=== PATIENT | female | born 1930 | race Caucasian/White ===

== ENCOUNTER 2018-09-17 15:14 | Inpatient (IN) | payer MEDICARE, OTHER ==
--- NOTE | 2018-09-17 16:43 | ED Physician Chart ---
ED Chief Complaint/HPI - Patient Information Date Seen:: 09/17/18 Time Seen:: 15:35 Chief Complaint:: Confusion with frequent wandering around for about 2 years. History of Present Illness:: Brought in by daughter Lisa for medical clearance for Geropsych admission. Pt has dementia and has been noticed to have progressive confusion with frequent wandering. Pt appears to be comfortable but is not cooperative; thus, H & P are limited. Pt denies any bodily pain or discomfort. Pt is primarily Armenian speaking. Interpretation is provided by her daughter Lisa per pt's request. Allergies:: Allergies Allergy/AdvReac Type Severity Reaction Status Date / Time No Known Allergies Allergy Verified 09/17/18 15:48 Vitals:: Vital Signs - 8 hr 09/17/18 15:48 Temp 97.2 F HR 82 RR 16 BP 155/68 O2 Sat % 97 Historian:: Patient, Family Member (daughter Lisa) Family MD/PCP:: Dr. Dennis LMP:: Postmenopausal. Review:: Nurse's Note Reviewed ED Review of Systems - Review of Systems General/Constitutional: Other (Pt does not cooperate for ROS.) ED Past Medical History - Past Medical History Past Medical History: HTN, DM, Dyslipidemia, Dementia Family History: None Social History: Non Smoker, No Alcohol, No Drug Use, Employment:: Retired. Surgical History: None Psychiatricy History: Dementia Medication: Reviewed Family Medical History - Family Member Mother History Unknown: Yes ED Physical Exam - Physical Examination General/Constitutional: Awake, Well-developed, well-nourished (elderly female), Alert, No distress, Non-toxic appearing, Ambulatory Other Gen/Cons comments:: Breathes comfortably, speaks clearly, but is not fully cooperative. Head: Atraumatic Eyes: Lids, conjuctiva normal, PERRL, EOMI Skin: Well hydrated, No lymphadenopathy ENMT: External ears, nose nl, Nasal exam nl, Oropharynx nl Neck: Full ROM w/o pain, No nuchal rigidity, No mass Respiratory: Nl effort/Exclusion, Clear to Auscultation, No Wheeze/Rhonchi/Rales Cardio Vascular: RRR, No murmur, gallop, rubs GI: No tenderness/rebounding/guarding, No organomegaly, Normal BS's, Nondistended, No mass/bruits Other GI comments:: Abdomen is soft. Extremities: No tenderness or effusion, No edema Neuro/Psych: Alert/oriented (knows her name and that she is in a hospital. Spontaneous movements noticed in all 4 extremities. Pt does not cooperate for full neurological exam.) ED Labs/Radiology/EKG Results - Lab Results Results: Laboratory Results - last 24 hr 09/17/18 09/17/18 09/17/18 17:03 17:03 17:40 WBC 7.8 RBC 4.64 Hgb 13.3 Hct 39.9 L MCV 86.1 MCH 28.8 MCHC Differential 33.4 RDW 13.5 Plt Count 242 MPV 7.6 Neutrophils % 50.6 Lymphocytes % 39.2 Monocytes % 8.0 Eosinophils % 1.5 Basophils % 0.7 Sodium 139 Potassium 3.8 Chloride 107 Carbon Dioxide 26.5 Anion Gap 9.3 BUN 20 Creatinine 0.7 Est GFR ( Amer) TNP Est GFR (Non-Af Amer) TNP BUN/Creatinine Ratio 28.6 Glucose 96 Calcium 8.8 Total Bilirubin 0.4 AST 10 L ALT 6 L Alkaline Phosphatase 57 Total Protein 6.7 Albumin 3.3 L Globulin 3.4 Albumin/Globulin Ratio 1.0 Urine Color STRAW Urine Clarity HAZY Urine pH 6.0 Ur Specific [place] 1.020 Urine Protein NEGATIVE Urine Glucose (UA) NEGATIVE Urine Ketones NEGATIVE Urine Blood SMALL H Urine Nitrate POSITIVE H Urine Bilirubin NEGATIVE Urine Urobilinogen 0.2 Ur Leukocyte Esterase SMALL H Pending lab results: urine culture. - EKG Interpretations EKG Time:: 17:03 Rate & Rhythm: NSR with VR 83 Comments:: No acute ischemic changes. ED Septic Shock - . Is Septic Shock (SBP<90, OR Lactate>4 mmol\L) present?: No - <6hrs of presentation: Vital Signs: Vital Signs - 8 hr 09/17/18 15:48 Temp 97.2 F HR 82 RR 16 BP 155/68 O2 Sat % 97 ED Reassessment (Disposition) - Reassessment Reassessment:: 1836 Pt remains stable. Lab and EKG findings have been reviewed with pt. Management plan has been discussed. Interpretation by her luis Gonzalez per pt' s request. Pt is medically cleared for [facility] admission. - Diagnosis Diagnosis:: Dementia. Urinary tract infection. DM. HTN. - Patient Disposition Admitted to:: [facility] Admitting Medical Physician:: Demetrius Dennis Admitting Psych Physician:: Blayne Ramirez Time:: 18:45 Condition at Disposition:: Stable
[2018-09-17 17:25] LABS: ALBUMIN 3.3 gm/dL (3.7-5.3); ALKALINE PHOSPHATASE 57 U/L (34-104); ANION GAP 9.3 (7.0-16.0); BILIRUBIN,TOTAL 0.4 mg/dL (0.3-1.0); BUN - UREA NITROGEN 20 mg/dL (7-25); CALCIUM SERUM 8.8 mg/dL (8.6-10.3); CARBON DIOXIDE 26.5 mEq/L (21.0-31.0); CHLORIDE 107 mEq/L (98-107); CREATININE - SERUM 0.7 mg/dL (0.6-1.2); GLUCOSE 96 mg/dL (70-105); POTASSIUM SERUM 3.8 mEq/L (3.5-5.1); SGOT 10 U/L (13-39); SGPT/ALT 6 U/L (7-52); SODIUM SERUM 139 mEq/L (136-145); TOTAL PROTEIN,SERUM 6.7 gm/dL (6.0-8.3)
[2018-09-17 17:32] LABS: RED BLOOD COUNT 4.64 Mil/cmm (3.80-5.20); WHITE BLOOD COUNT 7.8 Th/cmm (4.8-10.8)
[2018-09-17 17:33] LABS: % LYMPHOCYTES 39.2 % (20.0-50.0); % NEUTROPHILS 50.6 % (40.0-80.0); HEMATOCRIT 39.9 % (41.0-60); HEMOGLOBIN 13.3 gm/dL (12-16); MEAN CELL VOLUME 86.1 fl (81-100); MEAN CORPUSCULAR HEMOGLOBIN 28.8 pg (27.0-31.0); MEAN CORPUSCULAR HGB CONC 33.4 pg (28.0-36.0); PLATELET COUNT 242 Th/cmm (150-400); RED CELL DISTRIBUTION WIDTH 13.5 % (11.5-20.0)
[2018-09-17 17:34] LABS: % BASOPHILS 0.7 % (0.0-2.0); % EOSINOPHILS 1.5 % (0.0-5.0)
[2018-09-17 18:12] LABS: URINE SOURCE CLEAN C
[2018-09-17 18:17] LABS: URINE BILIRUBIN NEGATIVE (NEGATIVE); URINE BLOOD SMALL (NEGATIVE); URINE GLUCOSE (UA) NEGATIVE (NEGATIVE); URINE KETONE NEGATIVE (NEGATIVE); URINE LEUKOCYTE ESTERASE SMALL (NEGATIVE); URINE MICROSCOPIC INDICATED? YES; URINE NITRATE POSITIVE (NEGATIVE); URINE PROTEIN NEGATIVE (NEGATIVE); URINE UROBILINOGEN 0.2 E.U./dL (0.2 - 1.0)
[2018-09-17 18:28] LABS: URINE COLOR STRAW
[2018-09-17 18:29] LABS: URINE CLARITY HAZY (CLEAR)
[2018-09-17] MEDS ORDERED: Sulfamethoxazole/TMP 800/160mg Tab PO ONE (18:34)
[2018-09-17] MEDS ORDERED: Sulfamethoxazole/TMP 800/160mg Tab ONE (18:38)
[2018-09-17 19:11] LABS: URINE RBC 0-2 /hpf (0-5)
[2018-09-17 19:12] LABS: URINE BACTERIA 3+ /hpf (NONE SEEN); URINE EPITHELIAL CELLS OCCASIONAL /lpf (FEW)
[2018-09-17 20:16] VITALS: BP 156/68
[2018-09-17 21:18] LABS: CHOLESTEROL 223 mg/dL (<200); HDL -HIGH DENSITY LIPOPROTEIN 46 mg/dL (23-92); TRIGLYCERIDES 167 mg/dL (<150)
[2018-09-18] MEDS ORDERED: INSULIN LISPRO 100 UNIT/ML VIAL SUBQ SCH (06:30)
[2018-09-18] MEDS: INSULIN LISPRO 100 UNIT/ML VIAL SUBQ SCH ×2 (06:40→17:04)
[2018-09-18 08:05] LABS: A1C 5.6 % (4.8-5.6)
[2018-09-18] MEDS: Aspirin 81mg Chewable Tab PO SCH (08:29)
[2018-09-19] MEDS: INSULIN LISPRO 100 UNIT/ML VIAL SUBQ SCH ×2 (06:30→17:35)
[2018-09-19] MEDS: Aspirin 81mg Chewable Tab PO SCH (09:00)
--- NOTE | 2018-09-19 09:05 | Psychiatric Evaluation ---
DATE OF SERVICE: 09/18/2018 PSYCHIATRIC EVALUATION AND EXAMINATION IDENTIFYING DATA: The patient is an 87-year-old woman, resident of a long-term facility. Information obtained by directly interviewing the patient as well as reviewing the admission papers and is reliable. JUSTIFICATION OF HOSPITALIZATION: The patient is admitted on a voluntary basis in view of her depression and confusion. CHIEF COMPLAINT: "They brought me in here. I don't know. I left my back at home, I need that one now." HISTORY OF PRESENT ILLNESS: This is the first psychiatric hospitalization to [facility] for this patient who is reported to have been very confused and wandering most of the time and needs to be redirected. The patient is also reported to have been diagnosed to have depression and has been on antidepressant medication. During the evaluation, the patient is not able to provide much of information. Sleep and appetite prior to the hospitalization are reported to be poor. The patient is getting easily confused and walking out. PAST PSYCHIATRIC HISTORY: Details are not known. MEDICAL HISTORY: Physical examination is requested to be done by Dr. Dennis. SUBSTANCE ABUSE HISTORY: None. PHYSICAL OR SEXUAL ABUSE HISTORY: None. LEGAL PROBLEMS: None at this time. MENTAL STATUS EXAMINATION: The patient is an 87-year-old, looking her stated age, cooperative. Eye contact is noted to be fair. Mood is noted to be depressed. Affect is constricted. Insight and judgment at this time are noted to be still impaired. Impulse control is noted to be limited. Coping skills are noted to be limited. The patient has been having difficult time to cope with the stress. The patient is not presenting with any threats to harm self or others. The patient's attention span and concentration noted to be very poor. The patient is not able to recall the three things that are told to her after 5 minutes. The patient is however, motivated to seek treatment. DIAGNOSTIC IMPRESSION: AXIS I: Depressive disorder, not otherwise specified. IB: Dementia and behavioral changes, secondary trait. AXIS II: None. AXIS III: As per Dr. Dennis. IMMEDIATE TREATMENT PLAN: The patient is going to be observed on inpatient unit, provided with supportive psychotherapy. The patient is going to be closely monitored. The patient is going to be continued on the citalopram. The patient is going to be encouraged to verbalize the concerns. ESTIMATED LENGTH OF STAY: 5-7 days. DISCHARGE CRITERIA: When the patient is no longer a threat to self or others and be able to cope up with the stress. [facility]# [id number]
--- NOTE | 2018-09-19 19:51 | Progress Notes ---
DATE: 09/19/2018 SUBJECTIVE: The patient is awake and alert. The patient appears calm. The patient follows directions. Denies any chest pain or shortness of breath. Denies any nausea, vomiting or abdominal pain. OBJECTIVE: VITAL SIGNS: Stable, afebrile. GENERAL: In no apparent distress. HEENT: Normal. LUNGS: Clear. HEART: Regular rhythm, no murmur. ABDOMEN: Soft, nondistended. GENITOURINARY: No CVA tenderness. PSYCHIATRIC: Poor insight and judgment. MUSCULOSKELETAL: No edema in lower extremity. ASSESSMENT: 1. Essentially senile dementia with psychosis. 2. Acute depressive disorder with anxiety component. 3. Type 2 diabetes mellitus. 4. Hypertension. 5. Hyperlipidemia. 6. Hearing deficit, right ear. PLAN: 1. Continue inpatient psych treatment and therapy. 2. Continue current diabetic meds and blood pressure meds. 3. Continue psych meds per psychiatrist. JOB# [id number]
--- NOTE | 2018-09-20 00:39 | Consultation ---
DATE OF CONSULTATION: 09/18/2018 REQUESTING PHYSICIAN: Psychiatrist. CHIEF COMPLAINT: The patient is here for evaluation of severe anxiety and depression. HISTORY OF PRESENT ILLNESS: The patient is essentially an 87-year-old female with history of type 2 diabetes mellitus, hypertension, hyperlipidemia, chronic vertigo, and decreased hearing in the right ear, who voluntarily checked herself to the psych facility today for evaluation of severe depression and anxiety. The patient is a poor historian. Chart is reviewed. History is obtained from old records. According to the record, the patient is more restless and agitated, the family cannot take care of her. The patient also was feeling quite depressed. The patient came from home. PAST MEDICAL HISTORY: See HPI. PAST SURGICAL HISTORY: None. FAMILY HISTORY: Unknown. SOCIAL HISTORY: The patient is a single, denies tobacco or alcohol usage. REVIEW OF SYSTEMS: Unable to obtain due to the patient's demented state. PHYSICAL EXAMINATION: VITAL SIGNS: Stable, afebrile. GENERAL: Elderly appearing female, in minimal distress. HEENT: PERRLA, EOMI. Throat clear. Moist mucosa. NECK: Supple. CHEST: Lungs clear to auscultation. HEART: Regular rate and rhythm. No murmur. ABDOMEN: Soft, nondistended. GENITOURINARY: No ____. NEUROLOGIC: ____. Alert and oriented x 2. No focal findings noted. LABORATORY DATA: CBC is normal. Chem-7 is also normal. Blood sugar 96. Her cholesterol was 223, LDL was 149. UA positive nitrite, small leukocyte, 6-10 wbc's, 3+ urine bacteria. ASSESSMENT: 1. The patient is essentially 87-year-old female who presented with severe depression and anxiety. 2. The patient also found to have senile dementia with psychosis. 3. Urinary tract infection. 4. Type 2 diabetes mellitus. 5. Hypertension. 6. Hyperlipidemia. 7. Hearing deficit, right ear. PLAN: Concur with inpatient psych treatment and therapy. We will empirically start the patient on Macrobid 100 mg p.o. b.i.d. for 7 days for treatment of UTI. Also, will put the patient on 1800-ADA diet and insulin sliding scale for now. Continue the patient on blood pressure and cholesterol medication and continue psych medication per psychiatrist. JOB# [id number]
--- NOTE | 2018-09-20 01:50 | Consultation ---
DATE OF CONSULTATION: 09/19/2018 REFERRING PHYSICIAN: Blayne Ramirez M.D. TYPE OF CONSULTATION: Psychology. HISTORY OF PRESENT ILLNESS: The patient is an 87-year-old female. The following is by record review and by the patient's self-report. The patient is being admitted due to depression and worsening confusion. Upon interview, the patient does not understand why she has been brought to the hospital. The staff at the patient's facility report that she had been wandering and difficult to redirect with increasing confusion. The patient has a history of depression and has been on antidepressant medication. The patient is confused to the point where she is not providing much information. The patient is highly distractible. PAST MEDICAL HISTORY: Please see history and physical by Dr. Dennis. PAST PSYCHIATRIC HISTORY: Records are unavailable. Details are unknown. SUBSTANCE ABUSE HISTORY: The patient did not answer the questions about past use of alcohol, tobacco or illicit drugs. PSYCHOSOCIAL HISTORY: The patient did not answer questions about occupational or educational history. The patient states that she was raised [employer]ism and that she has a daughter named Lisa who is involved with her care. The patient did not indicate whether she is or or still . The patient did not answer questions about experiencing any history of physical or sexual abuse, but shook her head no to these questions. The patient denies any current legal problems. MENTAL STATUS EXAMINATION: The patient appears to be older than her stated age. The patient's attitude is cooperative. Eye contact is fair. Speech is slow and delayed, but coherent. Mood is depressed. Affect is constricted. Thought process shows to be depressogenic and confused. The patient denied experiencing any auditory or visual hallucinations or delusions. She denies any suicidal ideation, plan or intention. The patient's behavior has been redirectable for the most part on the unit. Impulse control is limited. Concentration is quite poor. The patient was unable to sustain focus and attention. The patient did not participate in the memory assessment. It appears that the patient's short-term memory is impaired and possible long-term memory as well. This needs further evaluation. The patient was having difficulty recalling her date of as well as milestones. Sensorium is alert and oriented to self and place only. The patient did not participate in the interpretation of proverbs. Insight is poor. Judgment is compromised. DIAGNOSTIC IMPRESSION: AXIS I: 1. Depressive disorder, not otherwise specified. 2. Dementia with behavioral disturbance. AXIS II: Deferred. AXIS III: Per Dr. Dennis. TREATMENT PLAN: The patient has been seen by Dr. Ramirez for psychiatric evaluation and for the management of the patient's psychotropic medications. We will provide supportive psychotherapy to include reality orientation, differentiation and integration. We will provide coping strategies for phase of life issues. If the patient is able to demonstrate the capacity to benefit from a cognitive behavioral therapeutic approach and treatment, we will provide this to reduce her depression. We will provide insight-oriented therapy as well as reflective listening. We will provide coping strategies for phase of life issues. We will provide motivational enhancement for the patient to become compliant and stay compliant with all aspects of her care and treatment. Thank you, Dr. Ramirez, for this consult and the opportunity to participate in this patient's care. JOB# [id number] MTDD
--- NOTE | 2018-09-20 03:45 | Progress Notes ---
DATE: 09/19/2018 PSYCHIATRIC PROGRESS NOTE SUBJECTIVE: Staff was spoken to. The patient is interviewed. The patient is noted to be very confused and has been having difficult time to cope with the stress. The patient is stating that she forgot her medication bag and she is worried about when she is going to be getting her medications; even though, the patient has been got the medications, the patient is still fixated on getting her medications. The patient continues to be having problem with the memory and hence I have decided to start the patient on Aricept and Namenda and follow the patient up with supportive therapy. JOB# [id number]
[2018-09-20] MEDS: INSULIN LISPRO 100 UNIT/ML VIAL SUBQ SCH ×2 (06:31→16:59)
[2018-09-20] MEDS: Aspirin 81mg Chewable Tab PO SCH (09:15)
--- NOTE | 2018-09-21 04:22 | Progress Notes ---
DATE: 09/20/2018 SUBJECTIVE: Staff was spoken to. The patient is interviewed. Mood is noted to be anxious. Affect is constricted. The patient's insight and judgment are noted to be improving. Impulse control seems to be poor. The patient is confused and has been wandering in and out of the room. The patient has both short-term and long-term memory deficits and the patient has been placed on the Namenda and Aricept to help her with the dementia part. Patient is currently on lorazepam on p.r.n. basis and the patient is being closely monitored at this time. No major side effects to the medications are noted. ASSESSMENT: The patient is still confused and paranoid. PLAN: To continue the patient with the supportive therapy, encouraged the patient to verbalize the concerns rather than to act out. JOB# [id number]
[2018-09-21] MEDS: INSULIN LISPRO 100 UNIT/ML VIAL SUBQ SCH (06:45)
[2018-09-21] MEDS: Aspirin 81mg Chewable Tab PO SCH (08:31)
--- NOTE | 2018-09-21 13:27 | Progress Notes ---
DATE: SUBJECTIVE: The patient is awake and alert. The patient is sitting up in bed. The patient denies any ____ symptoms. No chest pain or shortness of breath. The patient is able to follow commands and directions without difficulty. OBJECTIVE: VITAL SIGNS: Afebrile. Vital signs are stable. GENERAL: No apparent distress. HEENT: Normal. LUNGS: Clear. HEART: Regular rhythm, no murmur. ABDOMEN: Soft, nondistended. PSYCHIATRIC: Poor insight and judgment. NEUROLOGIC: No focal deficit noted. ASSESSMENT: 1. Senile dementia with psychosis. 2. Acute depression disorder with anxiety component. 3. Type 2 diabetes mellitus. 4. Hypertension. 5. Hyperlipidemia. 6. Hearing deficit, right ear. PLAN: 1. Continue inpatient psych treatment and therapy. 2. Continue psych meds per psychiatrist. 3. Continue current diabetic meds and BP meds. JOB# [id number]
--- NOTE | 2018-09-21 23:39 | Progress Notes ---
DATE: 09/21/2018 PSYCHIATRIC PROGRESS NOTE SUBJECTIVE: Staff was spoken to. The patient is interviewed. Mood is noted to be irritable. Affect is constricted. The patient is stating that she does not belong in here. The patient is stating that she could not figure it out why she has to be here and she has been looking for her family. The patient has no insight into her illness. Coping skills at this time are noted to be very poor. The patient has been confused and demented. PLAN: The patient has been placed on the Namenda and Aricept. The patient's family wants the patient to be back at the facility. Since the patient is not presenting with any threats to harm self or others, it is decided to discharge the patient today for followup on an outpatient basis. [facility]# [id number]
--- NOTE | 2018-09-22 03:22 | Progress Notes ---
DATE: 09/21/2018 PSYCHOLOGY PROGRESS NOTE SUBJECTIVE: The patient is seen and is interviewed. Case is discussed with staff. The patient presents as stable. The patient continues to be confused. Staff reports that the patient is redirectable, but has a tendency to wander. The patient responded mostly with irrelevant answers to the clinical questions. OBJECTIVE: Mood is anxious. Affect is mood congruent. Thought process shows to be confused. The patient did not answer questions about experiencing hallucinations or delusions. The patient has been compliant with her medication. ASSESSMENT AND PLAN: The patient's confusion persists. At this time, the patient is not verbalizing any paranoid ideation. We provided positive reinforcement for the patient to stay compliant with her care and treatment and to follow through with staff direction at her placement. We provided coping strategies for phase of life issues. We encouraged the patient to verbalize her concerns versus acting out. No followup is indicated. The staff reports the patient is scheduled to discharge today. JOB# [id number] MTDAngel
--- NOTE | 2018-09-22 17:37 | Discharge Summary ---
DATE OF DISCHARGE: 09/21/2018 IDENTIFYING DATA: The patient is an 87-year-old woman, resident of a detention facility. Information obtained by directly interviewing the patient as well as reviewing the admission papers and it is reliable. JUSTIFICATION OF HOSPITALIZATION: The patient is admitted on a voluntary basis in view of her acute agitation and confusion. CHIEF COMPLAINT: "I don't know, they brought me in here. I left my clothes at home. I need that one now." DIAGNOSES AT THE TIME OF ADMISSION: AXIS I: Depressive disorder, not otherwise specified. A. Dementia and behavioral change, secondary trait. AXIS II: None. AXIS III: As per Dr. Dennis. HISTORY OF PRESENT ILLNESS: Please refer to 09/18/2018 dictation done by me. Physical examination was done by Dr. Dennis. HOSPITAL COURSE AND RESPONSE TO TREATMENT: The patient has been observed on inpatient unit, provided with supportive psychotherapy. The patient has been continued with her antidepressant medication and the patient has been closely monitored and the patient has been encouraged to verbalize the concerns rather than to act out. The patient has been placed on citalopram 10 mg in view of dementia and the patient has been placed on Namenda and Aricept, the patient was observed and was noted to be doing fairly well and hence was discharged with recommendation that she is going to be seeking treatment on an outpatient basis. MENTAL STATUS EXAMINATION: At the time of discharge, the patient's mood is noted to be anxious. Affect is appropriate. Not suicidal or homicidal. Insight and judgment are noted to be fair. Impulse control is also noted to be fair. The patient has been able to verbalize the concerns rather than to act out. DISCHARGE CONDITION: At the time of discharge noted to be stable. PROGNOSIS: At the time of discharge noted to be fair with the treatment. JOB# [id number]
== END 2018-09-21 13:30 | DRG 884 ==
LOC: ER 15:14 → GERO2 18:51
PROVIDERS: ADMIT Psychiatry & Neurology Psychiatry; ATTEND Psychiatry & Neurology Psychiatry
DX: F03.91 Unspecified dementia, unspecified severity, with behavioral disturbance (principal); N39.0 Urinary tract infection, site not specified; I10 Essential (primary) hypertension; E11.9 Type 2 diabetes mellitus without complications; E78.5 Hyperlipidemia, unspecified; F32.9 Major depressive disorder, single episode, unspecified; R42 Dizziness and giddiness; F41.9 Anxiety disorder, unspecified; F29 Unspecified psychosis not due to a substance or known physiological condition
CPT/HCPCS: 36415-UA; 80053-TC; 80061-TC; 81001-TC; 83036-90; 85025-TC; 87086-90; 93005; Z7610